=== PATIENT | male | born 1995 | race Caucasian/White ===

== ENCOUNTER 2016-07-28 13:28 | Emergency (ER) | payer OTHER ==
--- NOTE | 2016-07-30 14:37 | ER ---
ADMIT: 07/28/2016 RM/LOC: [facility] MR#: [id number] [facility] [address] [place], [place] [id number] VERN POLLARD [address] [place] [address] Emergency Room Report SEX: M AGE: 21 : 1995 DATE: 07/28/2016 HISTORY OF PRESENT ILLNESS: Vern is a 21-year-old male, who presents to the emergency room today with complaints of feeling foreign body in his left eye. He states that this started at about 8:00 this morning when he woke up. He does work as a production welder. He was rating his pain, which was more of an irritation a 6/10. Bilateral eyes, EOMs are intact. Pupils are equal, round, reactive to light. We did numb his eye with some Alcaine drops and stained him. He did have a slight corneal abrasion of approximately 0.2 cm horizontal across the cornea. No foreign body was noted. Dr. Layne came in and examined the patient as well and did not see any foreign bodies. He was given a prescription for bacitracin, neomycin, and polymyxin B. He is going to use 1 quarter-inch ribbon across his left eye 4 times daily for 5 days. He was instructed that if he did not have any improvement or if it became worse, he needed to follow up immediately in the emergency room, otherwise he could follow up with Ophthalmology on Saturday. He was given a tetanus booster while he was in the emergency room. He was also sent home with saline to irrigate to see if that provided him any relief. Arleth Persaud APRN / Myles Layne MD / woo JOB #: [id number] CC: Myles Layne MD, Attending Physician Karen Cervantes MD, Family Physician
== END 2016-07-28 15:00 | disposition home or self-care (01) ==
LOC: ER 13:28
DX: S05.02XA Injury of conjunctiva and corneal abrasion without foreign body, left eye, initial encounter (principal); Z23 Encounter for immunization; Z79.899 Other long term (current) drug therapy; W45.8XXA Other foreign body or object entering through skin, initial encounter